=== PATIENT | female | born 1960 | race Caucasian/White ===

== ENCOUNTER → 2017-06-29 | Outpatient (CLI) | payer MEDICAID ==
[~2017-06-29] MED LIST: ALLO300T PO; ALPR0.5T6 PO; FURO20TA3 PO; HYDR-3237 PO; HYDR50TA13 PO; LEVO500T47 PO; NICO-486 TD; NICO-487 TD; NONE PER PT; ONDA4TAB12 PO; POLY17PO5 PO; POTA20PA25 PO; PRED20TA PO; TRAM50TA2 PO
== END | disposition home or self-care (01) ==
LOC: CFH 14:13
PROVIDERS: ATTEND Internal Medicine Hematology & Oncology
DX: C84.60 Anaplastic large cell lymphoma, ALK-positive, unspecified site (principal)
CPT/HCPCS: 76536